=== PATIENT | male | born 1945 | race Two or more races ===

== ENCOUNTER 2016-08-13 09:34 | Inpatient (IN) | payer SELFPAY ==
[2016-08-13 10:07] LABS: BASO % 0.4 % (0-2); EOSINOPHIL ABSOLUTE COUNT 0.1 tho/cmm (0.0-0.7); HCT-HEMATOCRIT 51.1 % (34.0-49.0); HGB-HEMOGLOBIN 17.6 gm/dl (12.0-15.5); IMMATURE GRANULOCYTES ABSOLUTE 0.01 tho/cmm (0-0.03); IMMATURE GRANULOCYTES PERCENT 0.1 % (0-0.3); LYMPH % 13.1 % (20-45); LYMPH ABSOLUTE COUNT 0.9 tho/cmm (0.8-4.5); MCH (MEAN CORPUSCULAR HGB) 29.9 pg (28.0-32.0); MCHC MEAN CORPUSCULAR HGB CONC 34.4 % (32.0-36.0); MCV (MEAN CELL VOLUME) 86.9 fl (82.0-96.0); MEAN PLATELET VOLUME 13.4 cmc (9.4-12.4); MONOCYTE ABSOLUTE COUNT 0.5 tho/cmm (0.0-1.2); NEUTROPHIL ABSOLUTE COUNT 5.5 tho/cmm (1.6-8.0); NEUTROPHIL-AUTOMATED 5.5 tho/cmm (1.6-8.0); NEUTROPHILS % 78.4 % (40-80); PLATELET COUNT 140 tho/cmm (150-450); RED BLOOD COUNT 5.88 mil/cmm (4.00-5.20); RED CELL DISTRIBUTION WIDTH 13.7 % (12.4-16.4)
[2016-08-13] MEDS ORDERED: LIPITOR10 M1 PO (10:09)
[2016-08-13 10:20] LABS: BLOOD UREA NITROGEN 15 mg/dl (6-24); CARBON DIOXIDE-VENOUS 25 mmol/L (22-32); CHLORIDE 109 mmol/l (96-110); GLUCOSE 121 mg/dL (70-110); SODIUM 141 mmol/L (135-145); eGFR VALUE FOR BLACK 59 mL/Min
[2016-08-13 10:23] LABS: ANION GAP 11 mmol/L (0-20); POTASSIUM 4.2 mmol/L (3.7-5.1)
[2016-08-14 06:06] LABS: BLOOD UREA NITROGEN 14 mg/dl (6-24); CHOLESTEROL 143 mg/dl (120-200); CREATININE 0.79 mg/dl (0.60-1.30); HDL CHOLESTEROL 46 mg/dl (40-60); LDL CHOLESTEROL 77 mg/dl (0-99); TRIGLYCERIDES 104 mg/dl (<149); VLDL 21 mg/dl (0-30); eGFR VALUE FOR BLACK >90 mL/Min
[2016-08-14] MEDS ORDERED: PLAVIX75 M1 PO ×2 (15:04→15:05)
[2016-08-14] MEDS ORDERED: TOPROL XL25 M1 PO (15:08)
[2016-08-14] MEDS ORDERED: ASPIRIN81 M1 PO (15:10)
== END 2016-08-14 17:35 | DRG 247 ==
LOC: EDMED 09:34 → EMR2 10:48 → PCUB 12:30
PROVIDERS: Emergency Medicine; ADMIT Internal Medicine Cardiovascular Disease
PROC: 027034Z Dilation of Coronary Artery, One Artery with Drug-eluting Intraluminal Device, Percutaneous Approach (ICD-10-PCS; principal; 2016-08-13)
PROC: 4A023N7 Measurement of Cardiac Sampling and Pressure, Left Heart, Percutaneous Approach (ICD-10-PCS; 2016-08-13)
PROC: B2111ZZ Fluoroscopy of Multiple Coronary Arteries using Low Osmolar Contrast (ICD-10-PCS; 2016-08-13)
DX: I21.4 Non-ST elevation (NSTEMI) myocardial infarction (principal); I10 Essential (primary) hypertension; I25.110 Atherosclerotic heart disease of native coronary artery with unstable angina pectoris; E78.5 Hyperlipidemia, unspecified; Z72.0 Tobacco use
CPT/HCPCS: C1725; C1769; C1874; C1887; C1894; C8929; C9606-LC; J1644; J2250; J3010; J7030; Q9967